=== PATIENT | female | born 1960 | race Caucasian/White ===

== ENCOUNTER 2016-04-16 00:34 | Emergency (ER) | payer BC ==
[2016-04-16 00:40] VITALS: TEMP 98.4; O2SAT 98
[2016-04-16] MEDS ORDERED: TDAP ADULT 0.5 ML INJ (BOOSTRIX) IM ONE (00:47)
--- NOTE | 2016-04-16 01:43 | EDPHY ---
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 She had no loss of consciousness. Did sustain a laceration. No nausea or vomiting. No headache. Did have 2 glasses of wine through the course of the day. Is not on any anticoagulation. ROS: 10 point Review of Systems is negative except as noted in the HPI. Physical exam: Gen: Awake, Alert, Airway Intact HEENT: Head: She has a large 8 cm laceration on the occiput. There is no bony step-offs or crepitus. There is a very small 1 cm galea tear. Eyes: PERRLA, EOMI Nose: No epistaxis Mouth: Normal dentition, Airway patent Face: No deformity Neck: non-tender, no stepoff, Full ROM without pain Chest: non-tender, lungs CTA Heart: normal heart tones Abd: soft, non-tender, atraumatic Pelvis: non-tender, stable to AP and Lateral compression Back: atraumatic, no midline tenderness Ext: atramatic, full ROM Skin: no rash Neuro: CN II-XII intact, Strength 5/5 in all extremities, sensation intact in all extremities - Personal History Current Tetanus/Diphtheria Vaccine: Unsure Current Tetanus Diphtheria and Acellular Pertussis (TDAP): Unsure - Medical/Surgical History Hx Asthma: No Hx Chronic Respiratory Disease: No Hx Diabetes: No Hx Cardiac Disease: No Hx Renal Disease: No Hx Cirrhosis: No Hx Alcoholism: No Hx HIV/AIDS: No Hx Splenectomy or Spleen Trauma: No Other PMH: HIGH CHOLESTEROL. HTN, - Social History Smoking Status: Former smoker Constitutional: Initial Vital Signs Temperature (C) 36.9 C 04/16/16 00:35 Heart Rate 93 04/16/16 00:35 Respiratory Rate 18 04/16/16 00:35 Blood Pressure 147/79 H 04/16/16 00:35 O2 Sat (%) 98 04/16/16 00:35 O2 Delivery Mode Room Air Allergies/Adverse Reactions: No Known Allergies Allergy (Unverified 04/16/16 00:40) Home Medications: Medication Instructions Recorded Losartan Potassium [Cozaar 50 mg 50 mg PO DAILY 04/16/16 (*)] Metoprolol Succinate 50 mg PO 04/16/16 SIMVASTATIN 04/16/16 Medical Decision Making Procedures: Procedure: Laceration repair. Verbal consent was obtained from the patient. The 8 cm laceration on the scalp was anesthetized in the usual fashion. The wound was irrigated, draped and explored to its base with a gloved finger. There were no deep structures involved. . The wound was repaired with a layered closure, galea was closed with 4 0 Vicryl simple interrupted suture. The tissues were closed with 2 simple interrupted sutures. Skin was closed with 12 laura. The wound repair was complex but uncomplicated. The procedure was performed by myself. ED Course/Re-evaluation: 55-year-old who sustained a scalp laceration when she struck her head tonight she had no loss of conscious. Does not have a headache or any neurologic findings. Wound has been repaired. She will be going home with her daughter will be able to keep an eye on her. She will return for any concerns. - Data Points Medications Given: Discontinued Medications Diphtheria/Tetanus/Acell Pertussis (Boostrix) 0.5 ml IM .ONCE ONE Stop: 04/16/16 00:48 Last Admin: 04/16/16 00:49 Dose: 0.5 ml Departure - Departure Disposition: Home, Routine, Self-Care Clinical Impression: Scalp laceration Condition: Good Instructions: Laceration (ED), Staple Care (ED) Additional Instructions: Woodland need to be removed in 10 days. Return to the emergency department for increasing headache, nausea, vomiting, confusion, or any other concerns. Referrals: [facility] [Other] - As per Instructions
[2016-04-16 02:01] VITALS: BP 138/78; PULSE 16; RESP 94
== END 2016-04-16 02:01 | disposition home or self-care (01) ==
PROC: 0HQ0XZZ Repair Scalp Skin, External Approach (ICD-10-PCS; principal; 2016-04-16)
DX: S01.01XA Laceration without foreign body of scalp, initial encounter (principal); I10 Essential (primary) hypertension; Z87.891 Personal history of nicotine dependence; Z23 Encounter for immunization; W20.8XXA Other cause of strike by thrown, projected or falling object, initial encounter